=== PATIENT | female | born 1980 | race Caucasian/White ===

== ENCOUNTER 2018-06-30 07:29 | Inpatient (IN) ==
[2018-06-30] MEDS ORDERED: LACTATED RINGER'S 1,000 ML IV PRN ×3 (07:37→14:33)
[2018-06-30] MEDS ORDERED: OXYTOCIN 30 UNITS/500 ML BAG IV PRN ×3 (07:37→16:02)
[2018-06-30 08:32] LABS: Basophils # (auto) 0.01 K/uL (0-0.2); Basophils % (auto) 0.1 %; Eosinophils # (auto) 0.21 K/uL (0-0.5); Eosinophils % (auto) 2.3 %; Hematocrit (blood only) 38.2 % (37-47); Hemoglobin 13.3 g/dL (12.0-16.0); Immature Granulocytes # (auto) 0.02 K/uL (0.00-0.02); Immature Granulocytes % (auto) 0.2 %; Lymphocytes # (auto) 2.94 K/uL (1.2-3.4); Lymphocytes % (auto) 31.9 %; Mean Corpuscular Volume 89.3 fL (80-100); Monocytes # (auto) 0.53 K/uL (0.11-0.59); Monocytes % (auto) 5.7 %; Neutrophils # (auto) 5.52 K/uL (1.4-6.5); Neutrophils % (auto) 59.8 %; Platelet Count 235 K/uL (130-400); RDW Standard Deviation 42.4 fL (36.4-46.3); Red Blood Count 4.28 M/uL (4.2-5.4); White Blood Count 9.23 K/uL (4.8-10.8)
[2018-06-30 08:36] LABS: Mean Corpuscular Hgb Conc 34.8 g/dL (32-36)
[2018-06-30 08:42] LABS: Prothrombin Time 10.3 Seconds (9.0-12.0)
[2018-06-30 08:49] LABS: Alanine Aminotransferase 29 U/L (12-78); Albumin Level 2.8 gm/dl (3.4-5.0); Aspartate Aminotransferase 24 U/L (15-37); Bilirubin Direct < 0.1 mg/dl (0-0.2); Est GFR (African American) > 150.0; Est GFR (Non-African American) 130.8; Uric Acid 4.6 mg/dl (2.6-7.2)
[2018-06-30 08:51] LABS: Alkaline Phosphatase 211 U/L (45-117); Bilirubin,Total 0.3 mg/dl (0.2-1); Total Protein 7.1 gm/dl (6.4-8.2)
--- NOTE | 2018-06-30 09:02 | History & Physical Report ---
Date of Service June 30, 2018 Assessment & Plan (1) Encounter for induction of labor: Pt is a 37 year old at 37+1 for induction of labor 2/2 GHTN - FHT reassuring Cat 1 tracing - Membranes intact - LR @ 125 - Pitocin 30 units in 500 mls @ 1 mls/hr -> up by 2 - Monitor FHT/toco - Monitor BP - Routine labor care - Anticipate Vaginal , Expectant management History of Present Illness Chief Complaint: IOL Primary Care Provider: NO PCP Pt is a 37 year old with lmp of 10/13/2017 and EDC of 07/20/2018 confirmed by 1st trimester ultrasound on 12/19/2017 at 9+4 who presents at 37+1 for induction of labor secondary to GHTN. Currently she reports feeling intermittent contractions > 10 minutes apart subjectively, they are not very strong. She currently denies nausea, vomiting, RUQ pain, swelling, headache, blurred vision, vaginal bleeding, or decreased movement. course was significant for hx of delivery received 17p this and GHTN in 3rd trimester negative labs. Last cervical exam 06/29/2018 175/-2 Pt resting comfortably in bed no acute complaints. labs First Visit: 9+4 Weight Gain: 21.18 lbs O+ antibody neg Last HGB: 12.8 06/12/2018 DM screen:145 05/03/2018 passed GTT Rubella Immune HIV neg Pap neg 12/19/17 Last U/S 04/05/18: Cephalic EGA:37+1 BP Range 164-122/100-76 U/A: skin toya GBS negative 06/26/18 RPR Negative HBsAG Negative GC/ Chlamydia negative Allergies Allergy/AdvReac Type Severity Reaction Status Date / Time No Known Allergies Allergy Unverified 06/22/18 13:19 Home Medications Home Medications Medication Instructions Recorded Confirmed Type vit-iron fum-folic ac 1 tab PO DAILY 06/22/18 06/30/18 History [ Vitamin] Patient History Medical History Hypertension in Family History Father Diabetes paternal side of family diabetes present High cholesterol paternal side of family high cholesterol present Hypertension paternal side of family HTN present Grandfather (Paternal) Lung cancer Sister Hyperthyroidism Hepatitis-C Son Gastroschisis Social History Preferred Language: Togolese Communication Ability: Effective Beliefs That Will Affect Care: None marital status: Current Living Situation: Spouse and Family Current Living Situation Comment: and 4 children Other Information That Helps Us Care for You: No Feels Safe at Home: Yes Safety Concerns: Feels Safe At This Time Smoking Status: Former smoker Hx Alcohol Use: No Hx Substance Use: No OB History OBHX: 10/1998 SAB @ 9 weeks; 04/16/2010 at 37 weeks labored for 8 hours and delivered a 5lbs 10 oz male; 04/28/2000 at 36 weeks delivered a 6lbs 9 oz male; October 2010 SAB @ 10 weeks; 09/19/2012 C/S at 37 weeks for distress and gastroischesis labored for 2 hours 5lbs 1 oz male; 02/17/2015 at 39 weeks labored for 1 hour and delivered a 7lbs 1oz female; 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 GYNHX: menearche @ 15, monthly cycles 29 days, normal amount and duration, Hx of D&E 2010, LEEP 2003, Laser surgery 2006, C/S 2012, delivery x1 PMHX: wisdom teeth extraction, chicken pox, Allergies: NKDA Review of Systems All systems reviewed & are unremarkable except as noted in HPI & below Physical Exam Vital Signs (Past 24 Hours): Last Vital Signs Temp 36.5 C 06/30/18 08:25 Pulse 88 06/30/18 08:26 Resp 20 06/30/18 08:25 BP 136/84 06/30/18 08:26 Constitutional: WD/WN, vitals as above Eyes: normal visual arguelles by confrontation Respiratory: normal respiratory effort, lungs clear to auscultation Cardiovascular: RRR, no murmur, no edema Extremities: no calf tenderness Gastrointestinal (Abdomen): normal bowel sounds, soft, nontender, no hepatosplenomegaly (Gravid Belly) Skin: no rashes, warm and dry Results & Data Laboratory Results 06/30/18 06/30/18 06/30/18 Range/Units 08:18 08:18 08:18 WBC 9.23 (4.8-10.8) K/uL RBC 4.28 (4.2-5.4) M/uL Hgb 13.3 (12.0-16.0) g/dL Hct 38.2 (37-47) % MCV 89.3 (80-100) fL MCH 31.1 (25-34) pg MCHC 34.8 (32-36) g/dL RDW Std Deviation 42.4 (36.4-46.3) fL RDW Coeff of [place] 13.0 (11.5-14.5) % Plt Count 235 (130-400) K/uL MPV 10.0 (7.4-10.4) fL Immature Gran % (Auto) 0.2 % Neut % (Auto) 59.8 % Lymph % (Auto) 31.9 % [place] % (Auto) 5.7 % Eos % (Auto) 2.3 % Baso % (Auto) 0.1 % Immature Gran # (Auto) 0.02 (0.00-0.02) K/uL Neut # (Auto) 5.52 (1.4-6.5) K/uL Lymph # (Auto) 2.94 (1.2-3.4) K/uL [place] # (Auto) 0.53 (0.11-0.59) K/uL Eos # (Auto) 0.21 (0-0.5) K/uL Baso # (Auto) 0.01 (0-0.2) K/uL PT 10.3 (9.0-12.0) Seconds INR 1.0 (0.9-1.1) Creatinine 0.44 L (0.6-1.2) mg/dl Est Cr Clr Drug Dosing 178.0 ml/min Est GFR ( Amer) > 150.0 Est GFR (Non-Af Amer) 130.8 Uric Acid 4.6 (2.6-7.2) mg/dl Total Bilirubin 0.3 (0.2-1) mg/dl Direct Bilirubin < 0.1 (0-0.2) mg/dl AST 24 (15-37) U/L ALT 29 (12-78) U/L Alkaline Phosphatase 211 H (45-117) U/L Total Protein 7.1 (6.4-8.2) gm/dl Albumin 2.8 L (3.4-5.0) gm/dl Medications Administered Current Inpatient Medications Lactated Ringer's (Lr) 1,000 mls @ 999 mls/hr IV .Q1H1M PRN PRN Reason: (Pre-Anesthesia) Stop: 07/30/18 07:36 Lactated Ringer's (Lr) 1,000 mls @ 999 mls/hr IV .Q1H1M PRN PRN Reason: Tachysystole Stop: 07/02/18 07:36 Lactated Ringer's (Lr) 1,000 mls @ 125 mls/hr IV .Q8H SARA Stop: 07/02/18 08:29 Oxytocin (Pitocin) 30 units in 500 mls @ 1 mls/hr IV .Q24H PRN; Protocol PRN Reason: Labor Induction/Augmentation Stop: 07/02/18 07:36 Oxytocin (Pitocin) 30 units in 500 mls @ 333.333 mls/hr IV .Q1H30M PRN; Protocol PRN Reason: Bleeding Control Stop: 07/30/18 07:36 Code Status & VTE Plan Code Status Full Code VTE Prophylaxis Plan VTE Prophylaxis will be ordered: No Monitoring External Monitor FHR 140/ moderate variability/ accels present/ no decels Supervising Physician Co-Signing Physician Notes Resident Physician Supervision Note: I interviewed and examined the patient. Discussed with Dr. Larson and agree with findings and plan as documented in the note. Any exceptions or clarifications are listed here: Patient here for planned 37 1/7 wk induction with h/o gestational htn. Of most significance is that she is a candidate with history of prior successful . She has a favorable cervix and we planned to start pitocin and attempt AROM when able. FHTs reassuring. Plan labs. Rh pos, ri, gbs neg. Patient was made aware of risks to uterine scar with that can be catastrophic and that use of pitocin can increase that risk but she desires to proceed. Documented By: Sandy Gallagher MD, FACOG Resident Activity Tracking Resident Involvement: Resident Care Provided Care Provided: [facility] Medicine
[2018-06-30] MEDS: LACTATED RINGER'S 1,000 ML IV SCH ×2 (09:23→14:16)
--- NOTE | 2018-06-30 11:10 | Obstetrical Progress Note ---
Date of Service June 30, 2018 Assessment & Plan (1) Encounter for induction of labor: (2) Elevated blood pressure affecting in third trimester, antepartum: (3) Supervision of elderly multigravida in third trimester: c/w pit, arom of forebag. pit at 5. will see how labor progresses. consent given and signed. Subjective pt thought she was leaking, nitrazine pos. feeling more ctx, pit at 5. Physical Exam Vital Signs (Past 24 Hours): Last Vital Signs Temp 36.7 C 06/30/18 10:42 Pulse 76 06/30/18 10:42 Resp 20 06/30/18 10:42 BP 134/80 06/30/18 10:42 Genitourinary: Manual OB Exam: + cervical dilation 3 cm, + cervical effacement (75%), + station -2 and + amniotic fluid (forebag, clear) OB Exam Monitor Tracing: + external FHT monitor used (130 mod variability), + external uterine monitor used (q2-3) and + normal FHT variability
[2018-06-30] MEDS ORDERED: BUPIVACAINE 0.25% 30 ML VIAL ONE (13:56)
[2018-06-30] MEDS ORDERED: ePHEDrine sulfate 50 MG/ML AMP ONE (13:56)
[2018-06-30] MEDS ORDERED: fentaNYL citrate 100 MCG/2 ML VIAL ONE (13:57)
[2018-06-30] MEDS ORDERED: fentaNYL 2MCG/ML ROPIV 1.25MG/ML 100 ML BAG EPI ONE (13:58)
--- NOTE | 2018-06-30 14:15 | Anesthesiology Consultation ---
Date of Service June 30, 2018 Assessment & Plan Chart Review Chart Review: Patient NOT seen in Pre Admission Testing and Acceptable Risk for Labor Epidural Consults Requested none ASA ASA2 Proposed Anesthesia Anesthesia Type: Labor Epidural and CSE Risk / Benefits Reviewed With: PT / POA / Parent / Guardian, Accepts Plan and Informed Consent Obtained NPO Date Last Intake of Fluids: 06/30/18 Time Last Intake of Fluids: 13:00 Date Last Intake of Solids: 06/30/18 Time Last Intake of Solids: 13:00 History Height/Weight Height: 5 ft 3 in Weight: 79.379 kg Allergies Allergy/AdvReac Type Severity Reaction Status Date / Time No Known Allergies Allergy Unverified 06/22/18 13:19 Medications Home Medications Medication Instructions Recorded Confirmed Last Taken vit-iron fum-folic ac 1 tab PO DAILY 06/22/18 06/30/18 06/27/18 08:00 [ Vitamin] Active Medications Generic Name Dose Route Start Last Admin Trade Name Freq PRN Reason Stop Dose Admin Lactated Ringer's 1,000 mls @ 125 mls/hr 06/30/18 08:30 06/30/18 14:16 Lr IV 07/02/18 08:29 999 mls/hr .Q8H SARA Administration Oxytocin 30 units in 500 mls @ 9 mls/hr 06/30/18 07:37 06/30/18 13:22 Pitocin IV 07/02/18 07:36 0.54 units/hr .Q24H PRN 9 mls/hr Labor Induction/Augmentation Titration Protocol 0.54 UNITS/HR Past Medical History Medical History Hypertension in Past Family History Family History Father Diabetes paternal side of family diabetes present High cholesterol paternal side of family high cholesterol present Hypertension paternal side of family HTN present Grandfather (Paternal) Lung cancer Sister Hyperthyroidism Hepatitis-C Son Gastroschisis Past Surgical History Surgical History H/O LEEP H/O dilation and curettage 2010 Previous section 09/19/2012 [place] teeth extracted 2014 Past Anesthesia History No Hx of Anesthesia Complications and No Family Hx of Anesthesia Complications History of PONV No Motion Sickness Screening History of Motion Sickness: No Social History Smoking Status: Former smoker Hx Alcohol Use: No Alcohol type: wine alcohol intake frequency: holidays/special occasions only Hx Substance Use: No substance use type: does not use Exercise / Class Metabolic Activity II 4-5 Yardwork/Stairs/Walk up hill Review of Systems no chest pain or sob Physical Exam Vital Signs Last Vital Signs Temp 36.5 C 06/30/18 13:49 Pulse 92 H 06/30/18 14:12 Resp 16 06/30/18 13:49 BP 139/69 06/30/18 13:49 Pulse Ox 98 06/30/18 14:12 ENMT Mouth: + dentures (Upper); no TMJ abnormality Thyromental Distance: > or= 3.5 Finger Breadths Mallampati Class: II Neck normal visual inspection Respiratory normal respiratory effort Auscultation: lungs clear to auscultation bilaterally Cardiovascular Rate/Rhythm: regular rate and regular rhythm Musculoskeletal Spine: normal cervical ROM Neurologic moves all extremities Psychiatric Orientation: alert and oriented x 3 Testing Laboratory Results 06/30/18 08:18 06/30/18 08:18 PT 10.3 Seconds (9.0-12.0) 06/30/18 08:18 INR 1.0 (0.9-1.1) 06/30/18 08:18
[2018-06-30] MEDS ORDERED: NALOXONE HCL 0.4 MG/1 ML VIAL/CARP IV PRN (14:33)
[2018-06-30] MEDS ORDERED: fentaNYL 2MCG/ML ROPIV 1.25MG/ML 100 ML BAG EPI PRN (14:33)
[2018-06-30] MEDS ORDERED: NALOXONE HCL 1 MG in SODIUM CHLORIDE 0.9% 1000ML 1,000 ML IV PRN (14:33)
[2018-06-30] MEDS ORDERED: NALBUPHINE HCL INJ 10 MG/ML AMP IV PRN (14:33)
[2018-06-30] MEDS ORDERED: ePHEDrine sulfate 50 MG/ML AMP IV PRN (14:33)
[2018-06-30] MEDS ORDERED: DiphenhydrAMINE HCL 50 MG/ML VIAL IV PRN (14:33)
[2018-06-30] MEDS ORDERED: ONDANSETRON INJ 2 MG/ML 2 ML VIAL IV PRN (14:34)
--- NOTE | 2018-06-30 15:31 | Delivery Summary ---
DATE OF OPERATION: 06/30/2018 The patient dilated to complete and pushed to deliver a viable male , Apgars 8 and 9 via over intact perineum. Mouth and nose bulb suctioned at the perineum and shoulders and body delivered with ease. vigorous and crying at . Cord clamped at 30 seconds of life and infant to maternal abdomen where the cord was then doubly clamped and cut. Placenta delivered spontaneously intact, 3-vessel cord. Hemostasis achieved with dilute Pitocin and uterine massage. Cervix and sulci intact. Mother and baby stable in recovery. EBL 300 mL. I attest to the content of the Intraoperative Record and any orders documented therein. Any exception s are noted below.
--- NOTE | 2018-06-30 15:45 | Anesthesia Procedure Note ---
Date of Service June 30, 2018 Anesthesia Post Epidural Note Vital Signs Vital Signs: Temp Pulse Resp BP Pulse Ox 36.5 C 88 20 107/78 94 06/30/18 13:49 06/30/18 15:36 06/30/18 14:46 06/30/18 15:36 06/30/18 15:09 Pain Intensity Abdomen: Pain Intensity: 2 Notes Mental Status: alert / awake / arousable and participated in evaluation Nausea / Vomiting: adequately controlled Pain: adequately controlled Airway Patency, RR, SpO2: stable & adequate BP & HR: stable & adequate Hydration State: stable & adequate Neuraxial Anesthesia: was administered and sensory block is resolving Anesthetic Complications: no major complications apparent and Pt Satisfied with anesthetic care Epidural: Removed without complications and With tip intact
[2018-06-30] MEDS ORDERED: BENZOCAINE 20% AER SPR 82.5 GM CAN EXT PRN (16:02)
[2018-06-30] MEDS ORDERED: HYDROCORTISONE ACETATE 25 MG SUPP PR PRN (16:02)
[2018-06-30] MEDS ORDERED: DIPHTHERIA/TETANUS/PERTUSSIS 0.5 ML SYR/VIAL IM ONE (16:02)
[2018-06-30] MEDS ORDERED: ACETAMINOPHEN 325 MG TAB PO PRN (16:02)
[2018-06-30] MEDS ORDERED: SUPERCREAM 0.870% 15 GM JAR EXT PRN (16:02)
[2018-06-30] MEDS ORDERED: OXYCODONE/ACETAMINOPHEN 5mg/325mg TAB PO PRN (16:02)
[2018-06-30] MEDS: OXYTOCIN 20 UNITS in LACTATED RINGER'S 1,000 ML IV SCH (16:51)
[2018-06-30] MEDS: IBUPROFEN 600 MG TAB PO PRN (20:08)
[2018-06-30] MEDS: DOCUSATE SODIUM 100 MG CAP PO SCH (20:08)
[2018-07-01] MEDS: IBUPROFEN 600 MG TAB PO PRN ×4 (02:11→20:43)
--- NOTE | 2018-07-01 07:38 | Obstetrical Progress Note ---
Date of Service July 01, 2018 Assessment & Plan (1) Status post vaginal delivery: Patient is a 32 year old PPD 1 s/p -Vital signs WNL bp 115/74 T36.6, -no si/sx of anemia. -Pt is doing clinically well -Continue to encourage ambulation as tolerated, Monitor and control pain with m otrin prn, Continue diet as tolerated. -Continue to support and encourage breast feeding -Routine care Supervising Physician Co-Signing Physician Notes Resident Physician Supervision Note: I interviewed and examined the patient. Discussed with Dr. Larson and agree with findings and plan as documented in the note. Any exceptions or clarifications are listed here: pt doing well. alex po, voiding, ambul without prob. pumping since not able to bring baby to breast. baby suspected to have TTN and in intermediate nursery. Routine care. Documented By: Sandy Gallagher MD, FACOG Subjective Pt resting in bed with her mom across from her. No acute events overnight. Patient is tolerating her diet, ambulating, passing gas and voiding, still no bm. Reports moderate lochia. Denies H/A, chest pain, palpitations and uti syx. No concerns at this time pain is well controlled Physical Exam Vital Signs (Past 24 Hours): Last Vital Signs Temp 36.6 C 07/01/18 04:30 Pulse 66 07/01/18 04:30 Resp 18 07/01/18 04:30 BP 115/74 07/01/18 04:30 Pulse Ox 94 06/30/18 15:09 Constitutional: WD/WN, vitals as above Eyes: normal visual arguelles by confrontation Respiratory: normal respiratory effort, lungs clear to auscultation Cardiovascular: RRR, no murmur, no edema Extremities: no calf tenderness Gastrointestinal (Abdomen): normal bowel sounds, soft, nontender, no hepatosplenomegaly (uterus firm 4 fingers below the umbilicus ) Results & Data Laboratory Results 06/30/18 06/30/18 06/30/18 Range/Units 08:18 08:18 08:18 WBC 9.23 (4.8-10.8) K/uL RBC 4.28 (4.2-5.4) M/uL Hgb 13.3 (12.0-16.0) g/dL Hct 38.2 (37-47) % MCV 89.3 (80-100) fL MCH 31.1 (25-34) pg MCHC 34.8 (32-36) g/dL RDW Std Deviation 42.4 (36.4-46.3) fL RDW Coeff of [place] 13.0 (11.5-14.5) % Plt Count 235 (130-400) K/uL MPV 10.0 (7.4-10.4) fL Immature Gran % (Auto) 0.2 % Neut % (Auto) 59.8 % Lymph % (Auto) 31.9 % [place] % (Auto) 5.7 % Eos % (Auto) 2.3 % Baso % (Auto) 0.1 % Immature Gran # (Auto) 0.02 (0.00-0.02) K/uL Neut # (Auto) 5.52 (1.4-6.5) K/uL Lymph # (Auto) 2.94 (1.2-3.4) K/uL [place] # (Auto) 0.53 (0.11-0.59) K/uL Eos # (Auto) 0.21 (0-0.5) K/uL Baso # (Auto) 0.01 (0-0.2) K/uL PT 10.3 (9.0-12.0) Seconds INR 1.0 (0.9-1.1) Creatinine 0.44 L (0.6-1.2) mg/dl Est Cr Clr Drug Dosing 178.0 ml/min Est GFR ( Amer) > 150.0 Est GFR (Non-Af Amer) 130.8 Uric Acid 4.6 (2.6-7.2) mg/dl Total Bilirubin 0.3 (0.2-1) mg/dl Direct Bilirubin < 0.1 (0-0.2) mg/dl AST 24 (15-37) U/L ALT 29 (12-78) U/L Alkaline Phosphatase 211 H (45-117) U/L Total Protein 7.1 (6.4-8.2) gm/dl Albumin 2.8 L (3.4-5.0) gm/dl Medications Administered Current Inpatient Medications Acetaminophen (Tylenol) 650 mg PO Q6H PRN PRN Reason: Pain/GIL/Fever Stop: 07/30/18 16:01 Benzocaine (Dermoplast Pain Relieving [place]) 1 appln EXT PRN PRN PRN Reason: Perineal Discomfort Stop: 07/30/18 16:01 Cocaine HCl (Supercream 0.870%) 1 gm EXT BID PRN PRN Reason: Hemorrhoidal Inflammation Stop: 07/14/18 16:01 Docusate Sodium (Colace) 100 mg PO BID [facility] Stop: 07/30/18 20:59 Last Admin: 06/30/18 20:08 Dose: 100 mg Documented by: Hydrocortisone (Anusol Hc) 25 mg OK BID PRN PRN Reason: Hemorrhoidal Inflammation Stop: 07/30/18 16:01 Oxytocin 20 units/ Lactated (Ringer's) 1,002 mls @ 125 mls/hr IV .Q8H1M [facility] Stop: 07/30/18 15:59 Last Infusion: 07/01/18 01:35 Dose: Infused Documented by: Oxytocin (Pitocin) 30 units in 500 mls @ 333.333 mls/hr IV .Q1H30M PRN; Protocol PRN Reason: BLEEDING CONTROL Stop: 07/30/18 16:01 Ibuprofen (Motrin) 600 mg PO Q4H PRN PRN Reason: Pain/GIL/Cramping/Fever Stop: 07/30/18 16:01 Last Admin: 07/01/18 02:11 Dose: 600 mg Documented by: Oxycodone/Acetaminophen (Percocet 5mg/325mg) 1 tab PO Q4H PRN PRN Reason: Pain not relieved by... Stop: 07/14/18 16:01 Resident Activity Tracking Resident Involvement: Resident Care Provided Care Provided: [facility] Hospital Medicine
[2018-07-01] MEDS: DOCUSATE SODIUM 100 MG CAP PO SCH ×2 (09:06→20:43)
[2018-07-02] MEDS: OXYTOCIN 20 UNITS in LACTATED RINGER'S 1,000 ML IV SCH (07:23)
--- NOTE | 2018-07-02 08:15 | Obstetrical Progress Note ---
Date of Service July 02, 2018 Assessment & Plan (1) Supervision of elderly multigravida in third trimester: - BP stable - baby still on antibiotics - will move patient to [facility] status - d/c instructions given - f/u in 6 weeks Subjective Ambulation: ambulating normally Feeding Type:: breast feeding Physical Exam Vital Signs (Past 24 Hours) Last Vital Signs Temp 36.4 C L 07/02/18 00:00 Pulse 75 07/02/18 00:00 Resp 16 07/02/18 00:00 BP 130/79 07/02/18 00:00 Pulse Ox 96 07/02/18 00:00 Gastrointestinal (Abdomen) Fundus firm below umbilicu Musculoskeletal no deep calf tenderness
[2018-07-02] MEDS: DOCUSATE SODIUM 100 MG CAP PO SCH (10:16)
== END 2018-07-02 17:40 | disposition hospice, home (50) | DRG 807 ==
LOC: 4S1 07:29 → 4S2 18:18

== ENCOUNTER 2020-12-22 16:40 | Inpatient (IN) ==
[2020-12-22] MEDS ORDERED: OXYTOCIN 30 UNITS/500 ML BAG IV PRN ×2 (17:13→23:08)
[2020-12-22] MEDS ORDERED: PENICILLIN G POTASSIUM 3 MU in DEXTROSE 5% 100 ML IV PRN (17:13)
[2020-12-22] MEDS ORDERED: PENICILLIN G POTASSIUM 6 MU in DEXTROSE 5% 250 ML IV STA (17:13)
[2020-12-22] MEDS ORDERED: LACTATED RINGER'S 1,000 ML IV PRN (17:13)
--- NOTE | 2020-12-22 17:22 | History & Physical Report ---
Date of Service December 22, 2020 Assessment & Plan (1) History of : (2) Gestational diabetes: (3) : Plan: 40 y/o at 37 4/7 wga presenting in labor VSS Fetus cat 1 labor - will admit, start PCN GDM - will check BG GBS+, start pcn epidural prn History of Present Illness Chief Complaint: Contractions Primary Care Provider: NO PCP 40 y/o at 37 4/7 wga w/ VIV 01/08 by 1st tri US presents to L&D from clinic w/ c/o ctx increasing in frequency and intensity, checked in the office and was 5-6 and sent to L&D. +FM and ctx, denies further mucous leakage (was r/o for ROM in office), denies VB PNI: Hx CSx1, x 2 A1GDM AMA Maternal R hydronephrosis GBS+ Past [employer] Hx: G1 SAB 1998 G2 2000 at 36 wks G3 2009 at 37 wks G4 2010 SAB, D&E G5 2012 CS at 37 wks, gastroschisis G6 2015 at 39 wks G7 2017 SAB G8 2019 at 37 wks, gHTN G9 current Menarche 17, q28d cycles Denies hx STIs Hx LEEP 1998, normal paps since. Last 05/2020 neg cotest Allergies Allergy/AdvReac Type Severity Reaction Status Date / Time No Known Allergies Allergy Verified 12/22/20 15:58 Home Medications Medication Instructions Recorded Confirmed Type prenat.vits,zi,gul-nhse-dygco 1 tab PO DAILY 05/20/20 12/22/20 History doxylamine succinate 25 mg tablet 25 mg PO HS PRN 06/16/20 12/22/20 History (Unisom (doxylamine)) pyridoxine (vitamin B6) 50 mg 50 mg PO HS PRN 06/16/20 12/22/20 History tablet (Vitamin B-6) acetone (urine) test (Ketone Urine #50 ea 11/03/20 12/22/20 Rx Test) blood sugar diagnostic (abusixTouch #150 ea 11/03/20 12/22/20 Rx Verio test strips) blood-glucose meter (OneTouch #1 ea 11/03/20 12/22/20 Rx Verio Flex meter) lancets 33 gauge (OneTouch Delica #150 ea 11/03/20 12/22/20 Rx Plus Lancet) sertraline 50 mg tablet (Zoloft) 50 mg PO DAILY #30 tab 12/10/20 12/22/20 Rx Patient History Medical History (Updated 12/22/20 @ 17:32 by Digna Del Castillo MD) Chicken pox Elevated blood pressure affecting in third trimester, antepartum Hydronephrosis seen by Yang at [place] Hypertension in Ovarian cyst Spontaneous 1998, 2010 - D&E, 2017 Spontaneous vaginal delivery 2000 [facility], 2009 [facility] (vaginal after ) 2014 [facility], 2018 [facility] - GHTN Yeast infection Surgical History (Updated 12/22/20 @ 17:32 by Digna Del Castillo MD) H/O dilation and curettage 2010 H/O LEEP 2002 Previous section 09/19/2012 - distress, Gastroschisis [place] teeth extracted 2014 Family History Father Diabetes paternal side of family diabetes present High cholesterol paternal side of family high cholesterol present Hypertension paternal side of family HTN present Grandfather (Paternal) Lung cancer Sister Hyperthyroidism Hepatitis-C Son Gastroschisis Social History Smoking Status: Never smoker Second Hand Exposure: No; Hx Alcohol Use: No Hx Substance Use: No Preferred Language: Venezuelan Communication Ability: Effective Beliefs That Will Affect Care: None marital status: marital status details: Conner ([phone]) [phone] Current Living Situation: Spouse and Family Current Living Situation Comment: and 4 children, no pets. current occupational status: unemployed Feels Safe at Home: Yes Assistive Devices: Glasses Physical Exam Constitutional: WD/WN, vitals as above Respiratory: normal respiratory effort; no respiratory distress and no labored breathing Psychiatric: A+Ox3, euthymic affect Genitourinary: OB Exam Monitor Tracing: + external FHT monitor used, + external uterine monitor used (toco readjusting, pt reports q10 as previous) and + category I (145/mod/+accel/-decel) Results & Data ([facility]) Vital Signs (Past 12 Hours) Vital Signs Pulse BP 12/22/20 16:50 87 133/74 Laboratory Results OB Labs: Blood Type O Positive 05/29/20 Antibody Screen NEGATIVE 05/29/20 Hemoglobin 12.3 g/dL (12.0-16.0) 10/17/20 Hematocrit 36.8 % (37-47) L 10/17/20 Mean Corpuscular Volume 90.1 fL (80-100) 06/16/20 Platelet Count 288 K/uL (130-400) 06/16/20 Rubella IgG Antibody Immune (Immune) 05/29/20 Rapid Plasma Reagin Nonreactive (Nonreactive) 05/29/20 Hepatitis B Surface Antigen Neg (Neg) 05/29/20 HIV (1&2) Ab and P24 Ag, 4th Gener Neg (Neg) 05/29/20 Glucose 1 Hour 50 gm Load 138 mg/dl (70-130) H 07/24/20 Maternal Serum Alpha Fetoprotein 21.8 ng/mL 07/24/20 OB Optional Labs: Chlamydia trachomatis RNA NOT DETECTED (NOT DETECTED) 05/29/20 Neisseria gonorrhoeae RNA NOT DETECTED (NOT DETECTED) 05/29/20 Alpha Fetoprotein Triple Screen SEE NOTE 07/24/20 Labs Reviewed: CF/SMA negative in prior (01/23/18) low risk cfdna afp neg GBS+ Diagnostic Findings R lateral placenta Coding Level of Care Code None Diagnoses Z34.90 History of Z98.891 Gestational diabetes O24.419
[2020-12-22 18:03] LABS: Hematocrit (blood only) 36.3 % (37-47); Hemoglobin 12.6 g/dL (12.0-16.0); Mean Corpuscular Hemoglobin 31.8 pg (25-34); Mean Corpuscular Hgb Conc 34.7 g/dL (32-36); Mean Corpuscular Volume 91.7 fL (80-100); Mean Platelet Volume 10.6 fL (7.4-10.4); Platelet Count 285 K/uL (130-400); RDW Standard Deviation 43.6 fL (36.4-46.3); Red Blood Count 3.96 M/uL (4.2-5.4); White Blood Count 8.81 K/uL (4.8-10.8)
--- NOTE | 2020-12-22 22:18 | Labor Progress Brief Note ---
Date of Service December 22, 2020 Subjective Contractions worsening, 2nd dose of pcn initiated Assessment & Plan (1) History of : (2) Gestational diabetes: (3) : Plan: 40 y/o at 37 4/7 wga presenting in labor VSS Fetus cat 1 labor - now s/p arom, continue expectant management GDM - will recheck BG as first was after clear liquids GBS+, pcn ppx epidural prn Admission and Anticipated Discharge Date Admission Date: December 22, 2020 Physical Exam Genitourinary: Manual OB Exam: + cervical dilation (6-7), + cervical effacement 90%, + station 0 and + amniotic fluid (AROM clear) OB Exam Monitor Tracing: + external FHT monitor used, + external uterine monitor used (q5-6) and + category I (145/mod/+accel/-decel) Results & Data ([facility]) Vital Signs (Past 12 Hours) Vital Signs Temp Pulse Resp BP 12/22/20 19:30 97.9 F 12/22/20 19:17 75 136/83 12/22/20 17:50 98.1 F 87 18 133/74 12/22/20 16:50 87 133/74 Coding Level of Care Code None Diagnoses History of Z98.891 Gestational diabetes O24.419 Z34.90
[2020-12-22] MEDS ORDERED: LIDOCAINE 1% LOCAL 20 ML VIAL ONE (22:51)
--- NOTE | 2020-12-22 23:07 | Delivery Summary ---
Vaginal Delivery Summary Date of Service December 22, 2020 Vaginal Delivery Summary PREOPERATIVE DIAGNOSIS: 1. Single intrauterine at 37 4/7 wga 2. Labor 3. Trial of labor after , hx x 2 4. A1GDM 5. AMA 6. GBS+ POSTOPERATIVE DIAGNOSIS: 1. Single intrauterine at 37 4/7 wga 2. Labor 3. Trial of labor after , hx x 2 4. A1GDM 5. AMA 6. GBS+ 7. Delivered PROCEDURE: 1. Vaginal after SURGEON: Digna Del Castillo MD ANESTHESIA: None ESTIMATED BLOOD LOSS: 300 mL FLUIDS: Continuous LR. URINE OUTPUT: None. COMPLICATIONS: None. CONDITION: Stable. INDICATIONS: 40 y/o at 37 4/7 wga presented to L&D from clinic w/ c/o ctx increasing in frequency and intensity, she was checked in the office and was 5-6cm so sent to L&D. She was started on penicillin for GBS+ status. She underwent artificial rupture of membranes and very rapidly progressed to complete in under 1 hour. FINDINGS: A viable male weight pending with Apgars of 9 and 9 at 1 and 5 minutes respectively. SPECIMEN: Cord blood OPERATIVE REPORT: The patient progressed to 10 cm, 100% effaced and +2 station, pushed over intact perineum with anesthesia to deliver a viable male , Apgars as above. Head of delivered in CAROLYNN position. No nuchal cord was present. Body and shoulders were delivered without difficulty. was delivered to maternal abdomen and nursing staff. Delayed cord clamping was performed for 60 seconds. Cord was clamped and cut. Cord blood was obtained. Placenta delivered spontaneously intact with 3-vessel cord. IV oxytocin and fundal massage were given for excellent hemostasis. Vagina, cervix, perineum, and placenta were inspected. A hemostatic right periclitoral abrasion was noted and not needed to be repaired. Sponge and needle counts correct x2. No sponges were left behind. Mother and stable in immediate period. [facility] [place] Vaginal Delivery Codes: 80537 global code for the antepartum, delivery, and post- Delivery Type Details:
[2020-12-22] MEDS ORDERED: BENZOCAINE 20% AER SPR 82.5 GM CAN EXT PRN (23:08)
[2020-12-22] MEDS ORDERED: HYDROCORTISONE ACETATE 25 MG SUPP PR PRN (23:08)
[2020-12-22] MEDS ORDERED: SUPERCREAM 0.870% 15 GM JAR EXT PRN (23:08)
[2020-12-22] MEDS ORDERED: ACETAMINOPHEN 325 MG TAB PO PRN (23:08)
[2020-12-22] MEDS ORDERED: DIPHTHERIA/TETANUS/PERTUSSIS 0.5 ML SYR/VIAL IM ONE (23:08)
[2020-12-22] MEDS ORDERED: bisacodyL 10 MG SUPP PR PRN (23:08)
[2020-12-22] MEDS: IBUPROFEN 600 MG TAB PO PRN (23:26)
[2020-12-22] MEDS ORDERED: OXYTOCIN 10 UNITS/ML VIAL IM ONE (23:29)
[2020-12-22] MEDS ORDERED: OXYTOCIN 10 UNITS/ML VIAL ONE (23:31)
[2020-12-23 06:18] LABS: Hematocrit (blood only) 36.1 % (37-47); Hemoglobin 12.1 g/dL (12.0-16.0); Mean Corpuscular Hemoglobin 30.6 pg (25-34); Mean Corpuscular Hgb Conc 33.5 g/dL (32-36); Mean Corpuscular Volume 91.4 fL (80-100); Mean Platelet Volume 10.5 fL (7.4-10.4); Platelet Count 285 K/uL (130-400); RDW Standard Deviation 43.7 fL (36.4-46.3); Red Blood Count 3.95 M/uL (4.2-5.4); White Blood Count 11.49 K/uL (4.8-10.8)
--- NOTE | 2020-12-23 06:38 | Obstetrical Progress Note ---
Date of Service <Kamari Hidalgo MD - Last Filed: 12/23/20 07:56> December 23, 2020 Assessment & Plan <Kamari Hidalgo MD - Last Filed: 12/23/20 07:56> (1) Vaginal delivery: 40 yo now PPD1 from at 37 wks 4 days -Continue routine care, discharge pending 's 24 hour observation given GBS+ -Vitals reviewed- HDS, afebrile -Blood type O+, GBS +, Rubella immune -Encourage ambulation -Pain control with Motrin, Tylenol PRN -Regular diet -Monitor lochia -Encourage -Hgb 12.1, asymptomatic -F/u in 6 weeks with OB <Kassi Fuentes MD, FACOG - Last Filed: 12/23/20 07:57> (1) Vaginal delivery: Subjective <Kamari Hidalgo MD - Last Filed: 12/23/20 07:56> Ambulation: ambulating normally Voiding: no voiding problems Passing Gas:: Yes Diet Tolerance:: regular diet Lochia:: Small Feeding Type:: breast feeding Current Pain Level(1-10): 0 Pt doing well, no acute events or complaints. Has not passed BM yet. Review of Systems Denies fevers, chills, dyspnea, chest pain, breast pain, dysuria, headache. Physical Exam <Kamari Hidalgo MD - Last Filed: 12/23/20 07:56> General: Alert, oriented, no acute distress Cardiac: Regular rate and rhythm, normal S1, S2. No murmurs appreciated. Respiratory: Clear to auscultation b/l with good air flow entry, symmetric chest rise and fall. No wheezes or crackles. No increased work of breathing or accessory muscle use Abdomen: Soft, nontender. Fundus firm and palpable at 2 cm below umbilicus. No guarding or rebound. Skin: No rashes or lesions Extremities: Warm, dry, well-perfused with capillary refill <2s b/l. No lower extremity edema, erythema or swelling. Negative Maury's sign b/l. Results & Data ([facility]) <Kamari Hidalgo MD - Last Filed: 12/23/20 07:56> Vital Signs (Past 12 Hours) Vital Signs Temp Pulse Pulse Resp BP BP Pulse Ox 12/23/20 05:30 36.5 C 64 18 144/86 H 98 12/23/20 01:40 37.2 C 77 16 126/82 97 12/23/20 01:05 36.7 C 18 12/23/20 01:03 71 119/70 12/23/20 00:48 67 133/78 12/23/20 00:35 18 12/23/20 00:33 65 133/73 12/23/20 00:18 70 139/79 12/23/20 00:05 18 12/23/20 00:03 66 140/70 12/23/20 00:01 65 154/73 H 12/22/20 23:50 18 12/22/20 23:35 18 12/22/20 23:20 18 12/22/20 23:19 76 139/59 L 12/22/20 23:05 18 12/22/20 23:03 74 152/74 H 12/22/20 22:28 36.6 C 18 12/22/20 19:30 36.6 C 12/22/20 19:17 75 136/83 <Kassi Fuentes MD, FACOG - Last Filed: 12/23/20 07:57> Co-Signing Physician Notes Resident Physician Supervision Note: I interviewed and examined the patient. Discussed with Dr. Hidalgo and agree with findings and plan as documented in the note. Any exceptions or clarifications are listed here: Doing well. Continued pp care. Documented By: Kassi Fuentes MD, FACOG Resident Activity Tracking <Kamari Hidalgo MD - Last Filed: 12/23/20 07:56> Resident Involvement: Resident Care Provided Care Provided: OB Delivery
[2020-12-23] MEDS: SERTRALINE HCL 50 MG TABLET PO SCH (08:17)
[2020-12-23] MEDS: IBUPROFEN 600 MG TAB PO PRN ×3 (08:17→20:18)
[2020-12-23] MEDS: DOCUSATE SODIUM 100 MG CAP PO SCH ×2 (08:17→20:18)
[2020-12-23] MEDS: PRENATAL VITAMIN 1 TAB PO SCH (08:17)
[2020-12-23] MEDS ORDERED: bisacodyL 5 MG TABEC PO SCH (20:00)
[2020-12-24] MEDS: IBUPROFEN 600 MG TAB PO PRN ×2 (03:07→09:05)
--- NOTE | 2020-12-24 06:08 | Obstetrical Progress Note ---
Date of Service <Kamari Hidalgo MD - Last Filed: 12/24/20 07:01> December 24, 2020 Assessment & Plan <Kamari Hidalgo MD - Last Filed: 12/24/20 07:01> (1) Vaginal delivery: 40 yo , complicated by GBS+, now PPD2 from at 37 wks 4 days -Will discharge today -Vitals reviewed- HDS, afebrile -Blood type O+, GBS +, Rubella immune -Encourage ambulation -Pain control with Motrin, Tylenol PRN -Regular diet -Monitor lochia -Encourage -Hgb 12.1, asymptomatic -F/u in 6 weeks with OB <Kassi Fuentes MD, FACOG - Last Filed: 12/24/20 07:11> (1) Vaginal delivery: Subjective <Kamari Hidalgo MD - Last Filed: 12/24/20 07:01> Ambulation: ambulating normally Voiding: no voiding problems Passing Gas:: Yes Diet Tolerance:: regular diet Lochia:: Small Feeding Type:: breast feeding Current Pain Level(1-10): 0 Pt doing well, no acute events or complaints. Baby doing well. Pt has not passed BM yet. Eager to go home today. Review of Systems Denies fevers/chills. Denies dyspnea, cough. Denies chest pain. Denies breast pain or discharge. Denies dysuria. Denies headache. Physical Exam <Kamari Hidalgo MD - Last Filed: 12/24/20 07:01> General: Alert, oriented, no acute distress Cardiac: Regular rate and rhythm, normal S1, S2. No murmurs appreciated. Respiratory: Clear to auscultation b/l with good air flow entry, symmetric chest rise and fall. No wheezes or crackles. No increased work of breathing or accessory muscle use Abdomen: Soft, nontender. Fundus firm and palpable at 1.5-2 cm below umbilicus. No guarding or rebound. Skin: No rashes or lesions Extremities: Warm, dry, well-perfused with capillary refill <2s b/l. No lower extremity edema, erythema or swelling. Negative Maury's sign b/l. Results & Data ([facility]) <Kamari Hidalgo MD - Last Filed: 12/24/20 07:01> Vital Signs (Past 12 Hours) Vital Signs Temp Pulse Resp BP Pulse Ox 12/23/20 23:15 36.6 C 72 16 131/84 98 12/23/20 20:15 36.8 C 66 18 128/78 <Kassi Fuentes MD, FACOG - Last Filed: 12/24/20 07:11> Co-Signing Physician Notes Resident Physician Supervision Note: I interviewed and examined the patient. Discussed with Dr. Hidalgo and agree with findings and plan as documented in the note. Any exceptions or clarifications are listed here: Doing well. Plan discharge. Instructions given. Documented By: Kassi Fuentes MD, FACOG
[2020-12-24] MEDS: PRENATAL VITAMIN 1 TAB PO SCH (09:05)
[2020-12-24] MEDS: DOCUSATE SODIUM 100 MG CAP PO SCH (09:05)
[2020-12-24] MEDS: SERTRALINE HCL 50 MG TABLET PO SCH (09:05)
== END 2020-12-24 09:36 | disposition home or self-care (01) | DRG 807 ==
LOC: OPB 16:40 → 4S1 16:41 → 4S2 12-23 02:10